=== PATIENT | male | born 1970 | race American Indian/Alaskan Native ===

== ENCOUNTER 2019-04-29 18:24 | Emergency (ER) | payer SELFPAY ==
[2019-04-29] MEDS ORDERED: ASPIRIN 325 MG TAB PO ONE (19:35)
--- NOTE | 2019-04-29 19:37 | Event Note ---
ED Screening Note Date of service: 04/29/19 Time: 19:34 ED Screening Note: 48 y o male presents with cp/dizzyness with headaches x few days This initial assessment/diagnostic orders/clinical plan/treatment(s) is/are subject to change based on patients health status, clinical progression and re- assessment by fellow clinical providers in the ED. Further treatment and workup at subsequent clinical providers discretion. Patient/guardian urged not to elope from the ED as their condition may be serious if not clinically assessed and managed. Initial orders include: labs,cxr
[2019-04-29 19:53] LABS: Basophils # (Auto) 0.1 K/mm3 (0.0-0.1); Basophils % (Auto) 1.3 % (0.0-1.8); Eosinophils # (Auto) 0.3 K/mm3 (0.0-0.4); Eosinophils % (Auto) 5.1 % (0.0-4.3); Hematocrit 45.9 % (35.5-45.6); Hemoglobin 15.4 gm/dl (11.8-15.2); Lymphocytes # (Auto) 1.9 K/mm3 (1.2-5.4); Lymphocytes % (Auto) 31.9 % (13.4-35.0); Mean Corpuscular HGB Conc 33 % (32-34); Mean Corpuscular Volume 99 fl (84-94); Monocytes # (Auto) 0.6 K/mm3 (0.0-0.8); Monocytes % (Auto) 10.6 % (0.0-7.3); Platelet Count 271 K/mm3 (140-440); Red Blood Count 4.63 M/mm3 (3.65-5.03); Red Cell Distribution Width 13.2 % (13.2-15.2)
[2019-04-29 20:11] LABS: BUN/Creatinine Ratio 9; Blood Urea Nitrogen 9 mg/dL (9-20); Calcium 9.4 mg/dL (8.4-10.2); Hemolysis Index 87
--- NOTE | 2019-04-29 21:06 | XRay Report ---
CHEST 2 VIEWS INDICATION / CLINICAL INFORMATION: Left chest pain for 2 to 3 weeks, increasing today. Syncopal episode 2-3 weeks ago. Dizziness today. COMPARISON: None available. FINDINGS: SUPPORT DEVICES: None. HEART / MEDIASTINUM: The heart size and pulmonary vasculature are normal. The aorta is normal in angelica everett. LUNGS / PLEURA: No significant pulmonary or pleural abnormality. No pneumothorax. ADDITIONAL FINDINGS: No significant additional findings. IMPRESSION: No acute findings. Signer Name: Gael Milner MD Signed: 04/29/2019 9:02 PM Workstation Name: [id number]
[2019-04-29 21:32] VITALS: BP 115/73
[2019-04-29] MEDS ORDERED: MECLIZINE 25 MG TAB PO ONE (21:32)
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
== END 2019-04-29 22:16 | disposition home or self-care (01) ==
LOC: ED 18:24
DX: R07.89 Other chest pain (principal); H61.23 Impacted cerumen, bilateral; F17.200 Nicotine dependence, unspecified, uncomplicated; F12.10 Cannabis abuse, uncomplicated
CPT/HCPCS: 36415; 71046; 80048; 84484; 85025; 93005; 93010

== ENCOUNTER 2019-05-22 22:50 | Emergency (ER) | payer SELFPAY ==
[2019-05-22 22:58] VITALS: BP 130/65
--- NOTE | 2019-05-23 00:29 | XRay Report ---
CHEST 2 VIEWS, 05/23/2019 12:01 AM INDICATION: Chest pain COMPARISON: Chest radiograph, 04/29/2019 FINDINGS: Support devices: None Heart: Heart size and pulmonary vascularity are within normal limits Lungs/pleura: The lungs are clear of focal airspace disease or significant pleural effusion. Additional findings: None IMPRESSION: 1. No evidence of acute cardiopulmonary process. Signer Name: Chinyere Ruiz MD Signed: 05/23/2019 12:25 AM Workstation Name: [employer]
[2019-05-23] MEDS ORDERED: diphenhydrAMINE 50 MG/ML VIAL IV STA (02:45)
[2019-05-23] MEDS ORDERED: KETOROLAC 30 MG/1 ML INJ IV STA (02:45)
[2019-05-23] MEDS ORDERED: SODIUM CHLORIDE 0.9% 1000 ML 1,000 ML IV ONE (02:45)
[2019-05-23] MEDS ORDERED: METOCLOPRAMIDE 10 MG/2 ML INJ IV STA (02:45)
[2019-05-23 03:22] LABS: Basophils % (Auto) 0.4 % (0.0-1.8); Eosinophils # (Auto) 0.3 K/mm3 (0.0-0.4); Eosinophils % (Auto) 3.3 % (0.0-4.3); Hematocrit 42.2 % (35.5-45.6); Hemoglobin 14.3 gm/dl (11.8-15.2); Lymphocytes # (Auto) 2.2 K/mm3 (1.2-5.4); Lymphocytes % (Auto) 27.3 % (13.4-35.0); Mean Corpuscular HGB Conc 34 % (32-34); Mean Corpuscular Volume 98 fl (84-94); Monocytes # (Auto) 0.8 K/mm3 (0.0-0.8); Monocytes % (Auto) 9.5 % (0.0-7.3); Platelet Count 275 K/mm3 (140-440); Red Blood Count 4.29 M/mm3 (3.65-5.03)
[2019-05-23 03:55] LABS: Alanine Aminotransferase 26 units/L (7-56); Albumin 4.1 g/dL (3.9-5); BUN/Creatinine Ratio 12; Blood Urea Nitrogen 12 mg/dL (9-20); Calcium 9.1 mg/dL (8.4-10.2); Hemolysis Index 7
--- NOTE | 2019-05-23 04:28 | Emergency Department Report ---
ED General Adult HPI - General Chief complaint: Chest Pain Stated complaint: HEADACHE, VISION LOSS, CHEST PAIN Time Seen by Provider: 05/23/19 02:10 Source: patient Mode of arrival: Ambulatory Limitations: No Limitations - History of Present Illness Initial comments: 48-year-old -[place] male with history appendectomy presents emergency department complaining of a three-day history of right-sided headache associated with a dull throbbing pain off and on since the onset not responding to [id number] treatment. States that today he noticed it when he leaned over he had some discomfort to his chest but no exertional dyspnea. Reports no hemoptysis no hematemesis or hematochezia and. Severity scale (0 -10): 3 - Related Data Previous Rx's Medication Instructions Recorded Last Taken Type Carbamide Peroxide 6.5% [Ear Wax 1 - 5 drops OT BID #4 day 04/29/19 Unknown Rx Drops] Meclizine [Antivert] 25 mg PO TID PRN #30 tablet 04/29/19 Unknown Rx Butalb/Acetamin/Caff 50-325-40 1 each PO Q4H PRN #14 tablet 05/23/19 Unknown Rx [Fioricet 50-325-40] Allergies Allergy/AdvReac Type Severity Reaction Status Date / Time No Known Allergies Allergy Verified 04/29/19 18:27 ED Review of Systems ROS: Stated complaint: HEADACHE, VISION LOSS, CHEST PAIN Other details as noted in HPI Comment: All other systems reviewed and negative ED Past Medical Hx - Past Medical History Previous Medical History?: No - Surgical History Past Surgical History?: Yes Hx Appendectomy: Yes Additional Surgical History: left knee - Social History Smoking Status: Never Smoker Substance Use Type: None - Medications Home Medications: Home Medications Medication Instructions Recorded Confirmed Last Taken Type Carbamide Peroxide 6.5% [Ear Wax 1 - 5 drops OT BID #4 day 04/29/19 Unknown Rx Drops] Meclizine [Antivert] 25 mg PO TID PRN #30 tablet 04/29/19 Unknown Rx Butalb/Acetamin/Caff 50-325-40 1 each PO Q4H PRN #14 tablet 05/23/19 Unknown Rx [Fioricet 50-325-40] ED Physical Exam - General Limitations: No Limitations General appearance: alert, in no apparent distress - Head Head exam: Present: atraumatic, normocephalic - Eye Eye exam: Present: normal appearance Pupils: Present: other (negative funduscopic examination) - ENT ENT exam: Present: normal exam, normal orophraynx, mucous membranes moist - Neck Neck exam: Present: normal inspection - Respiratory Respiratory exam: Present: normal lung sounds bilaterally. Absent: respiratory distress, wheezes, rales - Cardiovascular Cardiovascular Exam: Present: regular rate, normal rhythm. Absent: systolic murmur, diastolic murmur, rubs, gallop - GI/Abdominal GI/Abdominal exam: Present: soft, normal bowel sounds. Absent: distended, tenderness - Rectal Rectal exam: Present: deferred - Extremities Exam Extremities exam: Present: normal inspection - Back Exam Back exam: Present: normal inspection - Neurological Exam Neurological exam: Present: alert, oriented X3 - Psychiatric Psychiatric exam: Present: normal affect, normal mood - Skin Skin exam: Present: warm, dry, intact, normal color. Absent: rash ED Course Vital Signs 05/22/19 22:57 Temperature 98.5 F Pulse Rate 77 Respiratory 18 Rate Blood Pressure 130/65 O2 Sat by Pulse 97 Oximetry ED Medical Decision Making - Lab Data Result diagrams: 05/23/19 03:10 05/23/19 03:10 - EKG Data -: EKG Interpreted by [place] EKG shows normal: sinus rhythm Rate: normal - EKG Data Interpretation: other (incomplete right bundle-branch block) - Medical Decision Making The patient's risk factors for ACS were reviewed as well as the EKG. The CXR assists in r/o Pneumonia, Pneumothorax, Esophageal Tears. The patient does not appear to have a Pulmonary Embolism based on the Wells Score and PERC rule and there is no apparent DVT. There are no signs of Pericarditis, Endocarditis, or Myocarditis based on risk factor analysis. There is no fever. There does not appear to be an Aortic Dissection either based on history, physical exam, and signs. No evidence of ACS, pulmonary embolism, pneumothorax, pneumonia, Zoster, or esophageal perforation. Historically not abrupt in onset, tearing or ripping, pulses symmetric, no evidence of aortic dissection. Based Mr. Hines history and physical there is very low clinical suspicion for significant intracranial pathology. The headache was NOT sudden onset, NOT maximal at onset, there are NO neurologic findings, the patient does NOT have a fever, the patient does NOT have any jaw claudication, the patient does NOT endo rse a clotting disorder, patient DENIES any trauma or eye pain and the headache is NOT associated with dizziness or ataxia. Will treatment the patient symptomatically and reassess. Critical care attestation.: If time is entered above; I have spent that time in minutes in the direct care of this critically ill patient, excluding procedure time. ED Disposition Clinical Impression: Chest pain, Migraine Disposition: DC- TO HOME OR SELFCARE Is pt being admited?: No Does the pt Need Aspirin: No Condition: Stable Instructions: Chest Pain (ED), Migraine Headache (ED), Acute Headache (ED) Additional Instructions: The patient's risk factors for ACS were reviewed as well as the EKG. The CXR assists in r/o Pneumonia, Pneumothorax, Esophageal Tears. The patient does not appear to have a Pulmonary Embolism based on the Wells Score and PERC rule and there is no apparent DVT. There are no signs of Pericarditis, Endocarditis, or Myocarditis based on risk factor analysis. There is no fever. There does not appear to be an Aortic Dissection either based on history, physical exam, and signs. Prescriptions: Butalb/Acetamin/Caff 50-325-40 [Fioricet 50-325-40] 1 each PO Q4H PRN #14 tablet PRN Reason: Headache Referrals: PRIMARY CARE, [Primary Care Provider] - 3-5 Days
== END 2019-05-23 05:29 | disposition home or self-care (01) ==
LOC: ED 22:50
DX: G43.909 Migraine, unspecified, not intractable, without status migrainosus (principal); R07.89 Other chest pain
CPT/HCPCS: 36415; 71046; 80053; 85025; 93005; 93010; 96374; 96375; 99284; J1200; J1885; J2765; J7030